=== PATIENT | male | born 1980 | race Caucasian/White ===

== ENCOUNTER 2016-12-09 22:15 | Emergency (ER) | payer OTHER ==
[~2016-12-09] VITALS: Ht 160 cm; Wt 54.4 kg
[2016-12-09 22:39] LABS: BASO # 0.1 x10^3/uL (0.0-0.2); BASO % 1 % (0-3); EOS % 1 % (0-3); HEMATOCRIT 45.7 % (39.0-53.0); HEMOGLOBIN 15.3 g/dL (13.0-17.5); LYMPH # 1.7 x10^3/uL (1.0-4.8); LYMPH % 13 % (24-48); MEAN CORPUSCULAR HEMOGLOBIN 31 pg (25-35); MEAN CORPUSCULAR HGB CONC 34 g/dL (31-37); MEAN CORPUSCULAR VOLUME 93 fL (79-100); MONO % 5 % (0-9); NEUT % 80 % (31-73); PLATELET COUNT 212 x10^3/uL (140-400); RED BLOOD COUNT 4.92 x10^6/uL (4.30-5.70); RED CELL DISTRIBUTION WIDTH 13.7 % (11.5-14.5); WHITE BLOOD COUNT 12.8 x10^3/uL (4.0-11.0)
[2016-12-09 22:45] LABS: CALCIUM 9.2 mg/dL (8.5-10.1); CREATININE 1.2 mg/dL (0.7-1.3); GFR 69.3; POTASSIUM 3.8 mmol/L (3.5-5.1)
--- NOTE | 2016-12-09 23:04 | PHYS DOC ---
Past Medical History Past Medical History: Other Additional Past Medical Histor: CEREBRAL PALSY Past Surgical History: Other Additional Past Surgical Histo: HERNIA, RIGHT LEG, KNEE SCOPE Alcohol Use: Occasionally Drug Use: Marijuana Adult General Chief Complaint Chief Complaint: SYNCOPE HPI HPI 36-year-old gentleman with a history of cerebral palsy presenting to the emergency department today after having a syncopal episode. He reports sitting on his front porch when he felt dizzy and then sustained a syncopal episode. It was a witnessed episode. His girlfriend who is here with him today denies shaking. She states that he had 2 episodes of twitching. No tongue biting. No urinary incontinence. The episode lasted less than 30 seconds. There is no postictal period. There is a history of head trauma. Review of systems is negative for chest pain shortness of breath fevers chills nausea vomiting. Prior to this event patient was feeling "fine". All other review of systems is negative unless otherwise noted in history of present illness. ED course: 36-year-old gentleman presenting to the emergency department today with syncope. Head CT obtained along with basic metabolic panel and CBC. EKG shows no evidence of WPW. QT is within normal limits. No evidence of Brugada. No evidence of hypertrophic obstructive cardiomyopathy. No evidence of arrhythmogenic right ventricular cardiomyopathy. Workup unremarkable other than mild nonspecific leukocytosis. Pt denies polyuria or dysuria. He has never had a uti in the past. he denies cough or fever. He denies neck stifness. Physical exam shows negative Brudzinski sign and negative Kernig sign. The patient was then discharged home in stable condition to follow up with their primary care physician over the next 2-3 days. They were to return if their symptoms worsened or if they were concerned for any reason. [id number] discharge instructions and return precautions were given. Patient's questions were answered to their satisfaction. Patient is comfortable plan. Review of Systems Review of Systems SEE ABOVE. Allergies Allergies Allergies Coded Allergies Type Severity Reaction Last Updated Verified No Known Drug Allergies 12/09/16 No Physical Exam Physical Exam SEE ABOVE Constitutional: Well developed, well nourished, no acute distress, non-toxic appearance. [] HENT: Normocephalic, superficial less than 2 mm abrasion on the patient's left forehead. Otherwise no evidence of depressed skull fracture. No other ecchymosis lacerations or abrasions of the head or neck. Nontender cervical spine. Normal range of motion of the neck., bilateral external ears normal, oropharynx moist, no oral exudates, nose normal. [] Eyes: PERRLA, EOMI, conjunctiva normal, no discharge. [] Neck: Normal range of motion, no tenderness, supple, no stridor. [] Cardiovascular:Heart rate regular rhythm, no murmur [] Lungs & Thorax: Bilateral breath sounds clear to auscultation [] Abdomen: Bowel sounds normal, soft, no tenderness, no masses, no pulsatile masses. [] Skin: Warm, dry, no erythema, no rash. [] Back: No tenderness, no CVA tenderness. [] Extremities: No tenderness, no cyanosis, no clubbing, ROM intact, no edema. [] Neurologic: Mental status: Awake oriented and alert x3 Cranial nerves: Extraocular movements intact, eyebrows tierra bilaterally smile symmetric, uvula elevation, shoulder shrug intact, tongue protrusion normal DTRs: 2+ Sensation: equal and normal in all extremities Strength: 5/5 in upper and lower extremities bilaterally Psychologic: Affect normal, judgement normal, mood normal. [] Current Patient Data Vital Signs Vital Signs Date Time Temp Pulse Resp B/P (MAP) Pulse Ox O2 Delivery O2 Flow Rate FiO2 12/09/16 22:27 98.0 64 18 121/58 (79) 99 Room Air 98.0 Lab Values Laboratory Tests Test 12/09/16 22:31 White Blood Count 12.8 x10^3/uL (4.0-11.0) H Red Blood Count 4.92 x10^6/uL (4.30-5.70) Hemoglobin 15.3 g/dL (13.0-17.5) Hematocrit 45.7 % (39.0-53.0) Mean Corpuscular Volume 93 fL (79-100) Mean Corpuscular Hemoglobin 31 pg (25-35) Mean Corpuscular Hemoglobin Concent 34 g/dL (31-37) Red Cell Distribution Width 13.7 % (11.5-14.5) Platelet Count 212 x10^3/uL (140-400) Neutrophils (%) (Auto) 80 % (31-73) H Lymphocytes (%) (Auto) 13 % (24-48) L Monocytes (%) (Auto) 5 % (0-9) Eosinophils (%) (Auto) 1 % (0-3) Basophils (%) (Auto) 1 % (0-3) Neutrophils # (Auto) 10.2 x10^3uL (1.8-7.7) H Lymphocytes # (Auto) 1.7 x10^3/uL (1.0-4.8) Monocytes # (Auto) 0.7 x10^3/uL (0.0-1.1) Eosinophils # (Auto) 0.1 x10^3/uL (0.0-0.7) Basophils # (Auto) 0.1 x10^3/uL (0.0-0.2) Sodium Level 139 mmol/L (136-145) Potassium Level 3.8 mmol/L (3.5-5.1) Chloride Level 101 mmol/L (98-107) Carbon Dioxide Level 30 mmol/L (21-32) Anion Gap 8 (6-14) Blood Urea Nitrogen 11 mg/dL (8-26) Creatinine 1.2 mg/dL (0.7-1.3) Estimated GFR (Cockcroft-Gault) 69.3 Glucose Level 98 mg/dL (70-99) Calcium Level 9.2 mg/dL (8.5-10.1) Laboratory Tests 12/09/16 22:31 Laboratory Tests 12/09/16 22:31 EKG EKG [] Radiology/Procedures Radiology/Procedures [] Course & Med Decision Making Course & Med Decision Making Pertinent Labs and Imaging studies reviewed. (See chart for details) [] Dragon Disclaimer Dragon Disclaimer This electronic medical record was generated, in whole or in part, using a voice recognition dictation system. Departure Departure Impression: Primary Impression: Syncope Disposition: 01 HOME, SELF-CARE Condition: STABLE Referrals: UNKNOWN PCP NAME (PCP) Patient Instructions: Syncope, [id number] Additional Instructions: Thank you for allowing us to participate in your care today. Followup with your primary care physician in 3 days if your symptoms do not improve. Call your Primary Doctor tomorrow and inform them of your visit today. If you do not have a primary care provider you can ask for a list of our primary care providers. Return to the emergency department you have any new or concerning findings. This should be evaluated by the primary care physician and any necessary consulting services for continued management within a few days after discharge. Return to emergency room if you have any new or concerning symptoms including but not limited to fever, chills, nausea, vomiting, intractable pain, any new rashes, chest pain, shortness of air, uncontrolled bleeding, difficulty breathing, and/or vision loss. RAYMOND BLANK MD Dec 09, 2016 23:04
--- NOTE | 2016-12-09 23:07 | RAD ---
CT HEAD WO CONTRAST History: Syncope Comparison: None. Technique: Noncontrast [address] images were acquired from the skull base to the vertex. Exposure: One or more of the following individualized dose reduction techniques were utilized for this examination: 1. Automated exposure control 2. Adjustment of the mA and/or kV according to patient size 3. Use of iterative reconstruction technique. Findings: No acute extra-axial or parenchymal hemorrhage is identified. There is no significant intra-axial mass effect, midline shift, or extra-axial fluid collection. The anne-white differentiation of the major vascular territories is preserved. There is slightly more prominent size of the left lateral ventricle. There is mild prominence of the right temporal horn compared with the left, no associated mass effect in this region. 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 The mastoid air cells and the visualized paranasal sinuses are aerated. No acute calvarial abnormality is identified. Impression: 1. There is no evidence of acute intracranial hemorrhage. 2. 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 There is segmental prominence of the left lateral ventricle which may be due to adjacent volume loss. There is nonspecific mild prominence of the right temporal horn compared with the left although no mass effect. Electronically signed by: Rg Cisneros MD (12/09/2016 11:03 PM) [facility]
[2016-12-09 23:21] VITALS: BP 103/57
--- NOTE | 2016-12-10 07:06 | EKG ---
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
== END 2016-12-09 23:35 | disposition home or self-care (01) ==
LOC: ER 22:15
DX: R55 Syncope and collapse (principal); G80.9 Cerebral palsy, unspecified
CPT/HCPCS: 36415; 70450; 80048; 85025; 93005; 99285-25